=== PATIENT | male | born 1940 | race Caucasian/White ===

== ENCOUNTER 2025-07-24 09:04 | Emergency (ER) | payer MEDICARE, OTHER ==
[~2025-07-24] VITALS: Ht 170.2 cm; Wt 95.3 kg
[2025-07-24 09:39] LABS: PLATELET COUNT (AUTO) 165 K/uL (150-450); RED BLOOD CELL COUNT(AUTO) 3.28 MIL/uL (4.5-6.0); RED CELL DISTRIBUTION WIDTH 17.5 % (11.5-15.0)
[2025-07-24 09:54] LABS: WHITE BLOOD COUNT (AUTO) 56.0 K/uL (4.3-11.0)
[2025-07-24 09:57] LABS: CALCIUM, SERUM 8.8 mg/dL (8.5-10.1); CREATININE 1.1 mg/dL (0.6-1.3); SODIUM SERUM 138.0 mmol/L (136-145); UREA NITROGEN, BLOOD 19.0 mg/dL (7-18)
[2025-07-24 10:07] LABS: ASPARTATE AMINOTRANSFERASE 21.0 U/L (15-37); TOTAL PROTEIN, SERUM 6.8 g/dL (6.4-8.2)
[2025-07-24 10:28] LABS: APPEARANCE,URINE CLOUDY (CLEAR); BLOOD, URINE TRACE-INTA Ery/uL (NEGATIVE); LEUKOCYTE ESTERASE ,URINE 1+ (NEGATIVE); NITRITE, URINE NEGATIVE (NEGATIVE); UGLUCOSE NEGATIVE (NEGATIVE)
[2025-07-24 10:35] LABS: ADD URINE CULTURE YES
[2025-07-24 10:36] LABS: SQUAMOUS EPITHELIAL CELL,UR Rare /HPF (None Seen)
[2025-07-24] MEDS: LEVOFLOXACIN 750 MG /D5W 150ML PIGGYBACK IV ONE (11:07)
[2025-07-24 11:37] LABS: BASOPHILS % (MANUAL) 0 % (0.0-2.0); EOSINOPHILS % (MANUAL) 0 % (0-4); LYMPHOCYTES % (MANUAL) 78 % (16-48); MONOCYTES % (MANUAL) 3 % (0-11.0); NEUTROPHILS % (MANUAL) 19 (42-76); PLATELET ESTIMATE ADEQUATE
[2025-07-24] MEDS ORDERED: LEVO500T90 PO (12:44)
[2025-07-24 12:55] VITALS: BP 136/65; TEMP 98; O2SAT 98
== END 2025-07-24 13:12 | disposition left against medical advice (07) ==
LOC: ER 09:06
DX: N45.1 Epididymitis (principal); D72.829 Elevated white blood cell count, unspecified; N39.0 Urinary tract infection, site not specified; R09.02 Hypoxemia; Z53.29 Procedure and treatment not carried out because of patient's decision for other reasons; Z85.6 Personal history of leukemia; Z87.440 Personal history of urinary (tract) infections; Z85.72 Personal history of non-Hodgkin lymphomas; Z87.39 Personal history of other diseases of the musculoskeletal system and connective tissue
CPT/HCPCS: 74176; 96365; 76870; 85027; 80048; 87040 ×2; 87086; 83690; 80076; 85007; 81001; 36415; 80503; 99285; J1956; 87186-TC